=== PATIENT | female | born 2005 | race Caucasian/White ===

== ENCOUNTER 2024-10-20 07:56 | Outpatient (AMB) | payer BC, SELFPAY ==
--- NOTE | 2024-10-20 08:00 | A.OFFPC_ITS ---
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: No Accompanied by: Spouse Allergies No Known Allergies Allergy (Verified 10/20/24 08:10) Medication List - Last Reconciled 10/20/24 by Daniella Montenegro PA-C escitalopram oxalate 5 mg PO DAILY escitalopram oxalate 10 mg PO DAILY Tobacco use date assessed: 10/20/24 Dental Screening Dental Screen Date: 10/20/24 Did you have a dental visit in the last 12 months?: Yes Did you have a dental problem in the last 6 months where you did not have access to dental care?: No Was dental information given to patient?: Patient has dentist HPI 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 Presenting for a new primary care visit and medication management. Currently on escitalopram 10 mg, reduced from 15 mg for over a month and a half, with improved anxiety control and plans to taper further. Eczema has worsened due to environmental and emotional stressors, requiring ongoing topical steroid treatment. Possible Carpal Tunnel Syndrome symptoms include bilateral hand pain with numbness, tingling, and impact on daily activities, suggesting nerve involvement. Patient has been struggling with weight gain over the last several years. Significant post-medication weight gain; history of successful weight loss during the COVID-19 period. She is currently working on exercise and dietary modification. She does regularly see an eye doctor. [facility] Surgical History No pertinent past surgical history Family History Mother No problems noted. Father No problems noted. Social History Housing: Apartment Alcohol intake: never Patient Tobacco Use Status: Never used Tobacco e-Cigarette/Vaping Use: Never Used Second Hand Smoke Exposure: No service: No Current occupational status: employed Current occupational exposures/hazards: No Cognitive needs: No Hearing needs: No Vision needs: Yes Female Reproductive History Menstrual control method: none Total pregnancies: 0 Questionnaire Thrive Questionnaire Date Thrive assessed: 10/18/24 I am a: Patient What is your living situation today?: I have a steady place to live Within the past 12 months, did the food you bought not last and you didn't have the money to get more?: Never true Within the past 12 months, did you worry whether your food would run out before you got money to buy more?: Never true Do you have trouble paying for medicines?: No Do you have trouble getting transportation to medical appointments?: No Do you have trouble paying your heating and electricity bill?: No Do you have trouble taking care of your child, family member or friend?: No Do you have trouble with day-to-day activities such as bathing, preparing meals, shopping, managing finances, etc.?: No Are you currently unemployed and looking for a job?: No Are you interested in more education?: Yes Please select the resources that you would like help with: None THRIVE Score: 0 AUDIT C Alcohol Use Questionnaire (AUDIT-C) 1. How often do you have a drink containing alcohol?: Never Total Score: 0 ANKITA-7 AMB Questionnaire ANKITA-7 Date ANKITA - 7 assessed: 10/20/24 Feeling nervous, anxious, or on edge: 2 = More than half the days Not being able to stop or control worryin = Not at all Worrying too much about different things: 1 = Several days Trouble relaxin = Several days Being so restless that it is hard to sit still: 1 = Several days Becoming easily annoyed or irritable: 1 = Several days Feeling afraid as if something awful might happen: 0 = Not at all Total ANKITA-7 score (0-4 normal; 5-9 mild; 10-14 moderate; 15-21 severe): 6 Source: Developed by Drs. Victor Manuel Hahn, Nayeli Peterson, Dilan Negron and colleagues, with an educational kristine from [employer]. ANKITA-7 Assessment Billing ANKITA-7 Assessment Tool: ANKITA-7 Assessment 21520 Review of Systems Const Denies body aches, Denies chills, Denies fever(s), Denies headache(s) and Denies poor appetite Eyes Reports no additional complaints ENT Denies dysphagia, Denies dizziness, Denies headache(s) and Denies odynophagia Card Denies chest pain, Denies syncope, Denies edema, Denies irregular heart rhythm, Denies lightheadedness and Denies dyspnea Resp Denies cough and Denies dyspnea GI Denies abdominal pain, Denies constipation, Denies dysphagia, Denies diarrhea, Denies nausea, Denies odynophagia and Denies vomiting Reports no additional complaints Musc Reports no additional complaints and Denies abnormal gait Skin/Breast Reports system reviewed and no additional complaints, except as documented Neuro Denies abnormal gait, Denies dizziness, Denies syncope and Denies headache(s) Psych Reports no additional complaints Physical exam (Primary Care) Vital Signs: Last Vital Signs Pulse 96 10/20/24 08:03 BP 126/80 10/20/24 08:03 Pulse Ox 98 10/20/24 08:03 Oxygen Delivery Method Room Air 10/20/24 08:03 BMI result Body Mass Index 45.6 Tobacco/Smoking Status: Tobacco use Status Tobacco use date assessed 10/20/24 10/20/24 08:08 Patient Tobacco Use Status Never used Tobacco 10/20/24 08:08 e-Cigarette/Vaping Use Never Used 10/20/24 08:08 Thrive Assessment: Date of Thrive Assessment Date Thrive assessed 10/18/24 10/20/24 08:08 Const General: cooperative, healthy appearing, comfortable and no acute distress Orientation/consciousness: patient oriented x3 HENMT Head: Yes normocephalic Ears: hearing grossly normal bilaterally General nose exam: Normal external nose present Eyes General: appearance normal, both eyes and all related structures Conjunctivae: conjunctivae normal Neck Neck: Yes full ROM and Yes no lymphadenopathy Resp Effort & Inspection: normal respiratory effort Auscultation: clear to auscultation bilaterally, no crackles, no rales, no rhonchi and no wheezes Cardio Rate: regular rate Rhythm: regular rhythm Skin Other: Multiple patches of dry eczematous rash on bilateral arms General skin exam: no rashes or lesions noted Neuro General: patient oriented x3 Gait exam (Neuro): Normal gait present Extrem General: Yes normal to inspection, Yes full ROM and No edema Psych Affect: normal affect Attitude: cooperative Insight: Good insight present (Psych) Judgement: Good judgement present (Psych) Coding Level of Care Code New Pt Level 4 (44078) Diagnoses Anxiety F41.9 Wears glasses Z97.3 Eczema, unspecified type L30.9 Eczema type: unspecified Numbness and tingling in both hands R20.0; R20.2 Morbid obesity with BMI of 45.0-49.9, adult E66.01; Z68.42 Screening for cervical cancer Z12.4 Additional Codes ANKITA-7 Assessment Billing - ANKITA-7 Assessment Tool: ANKITA-7 Assessment 61921 ([id number]) Assessment & Plan Assessment & Plan (1) Anxiety: Code(s): F41.9 - Anxiety disorder, unspecified Category: Medical Plan: Patient feels her anxiety is well managed on escitalopram she is currently working on tapering down from 15 mg. She would like to discontinue this medication as she feels her anxiety has been improving with the lower doses. She has been on 10 mg for 1.5 months I did advise patient she can further decrease to 5 mg at this time for 2-3 weeks before discontinuing completely. Advised patient to continue to monitor her symptoms while she is tapering and reach out to the office if she has any questions. (2) Wears glasses: Code(s): Z97.3 - Presence of spectacles and contact lenses Category: Medical Plan: Referral was placed for an eye doctor today as patient does not have 1 in this area. (3) Eczema: Code(s): L30.9 - Dermatitis, unspecified Category: Medical Qualifiers: Eczema type: unspecified Qualified Code(s): L30.9 - Dermatitis, unspecified Plan: Patient currently uses topical triamcinolone as prescribed by her last PCP for management of her eczema. Recommended management of triggers advised the use of detergents free of dyes and unscented. Also recommended topical emollients such as Aquaphor or Eucerin (4) Numbness and tingling in both hands: Code(s): R20.0 - Anesthesia of skin; R20.2 - Paresthesia of skin Category: Medical Plan: Patient complaining of numbness and tingling in both hands to do occupational triggers [id number]. Numbness is significant enough to impair daily activities. She does currently wear a supportive wrist brace on the left side both at night and while at work. I recommended the use of more structured night splints specific to carpal tunnel syndrome. Given patient's severity plan to obtain nerve conduction test at this time and can consider referral to Orthopedics. (5) Morbid obesity with BMI of 45.0-49.9, adult: Code(s): E66.01 - Morbid (severe) obesity due to excess calories; Z68.42 - Body mass index [BMI] 45.0-49.9, adult Category: Medical Plan: Healthy diet and regular exercise is encouraged. Plan to obtain blood work. Offered referral to nutrition or weight management today which was declined by the patient. (6) Screening for cervical cancer: Code(s): Z12.4 - Encounter for screening for malignant neoplasm of cervix Category: Medical Plan: Referral was placed to gynecology today Plan At this visit, strategies for the gradual reduction of escitalopram were continued, along with planning for gynecological evaluation due to the lack of prior assessments. To address her eczema exacerbation, continued use of steroid cream and emollients was advised. For possible carpal tunnel syndrome, scheduling of a nerve conduction study will provide further insights. Labs will include a thyroid panel and lipid profile to address concerns with weight gain and manage risks. Ongoing discussions highlighted the importance of healthy lifestyle habits including diet and exercise to aid in weight management and the potential role of medication side effects. This note was constructed using voice recognition software. While every effort has been made to ensure accuracy and grain combine driver, still areas may have been included sometimes these areas may affect the content or meeting of the given symptoms. Total time spent caring for the patient today was 30 minutes. This includes time spent before the visit reviewing the chart, time spent during the visit, and time spent after the visit and documentation. Patient was informed and verbally consented to the use of an ambient scribe for clinic note documentation during this visit. Orders: Orders Comprehensive Met. Panel Today Z00.00 - Encounter for general adult medical examination without abnormal findings Vitamin D 25-OH Total Today Z00.00 - Encounter for general adult medical examination without abnormal findings Complete Blood Count Auto Diff Today Z00.00 - Encounter for general adult medical examination without abnormal findings TSH reflex Free T4 Today Z00.00 - Encounter for general adult medical examination without abnormal findings Free T4 (Free Thyroxine) Today Z00.00 - Encounter for general adult medical examination without abnormal findings Lipid Panel Today Z13.220 - Encounter for screening for lipoid disorders Vitamin B12 and Folate Today Z00.00 - Encounter for general adult medical examination without abnormal findings NE electromyogram (EMG) Today R20.0 - Anesthesia of skin, R20.2 - Paresthesia of skin NE nerve conduction velocity Today R20.0 - Anesthesia of skin, R20.2 - Pare sthesia of skin Referrals PRACTICE COORDINATOR Referral Z12.4 - Encounter for screening for malignant neoplasm of cervix Optometry Referral Z97.3 - Presence of spectacles and contact lenses Dermatology Referral L30.9 - Dermatitis, unspecified
[2024-10-20 08:03] VITALS: BP 126/80; PULSE 96; O2SAT 98; BMI 45.6
== END 2024-10-20 08:38 | disposition home or self-care (01) ==
LOC: HO.HMCH 07:56
DX: R20.2 Paresthesia of skin (principal); E66.01 Morbid (severe) obesity due to excess calories; Z68.42 Body mass index [BMI] 45.0-49.9, adult; F41.9 Anxiety disorder, unspecified; Z97.3 Presence of spectacles and contact lenses; L30.9 Dermatitis, unspecified; R20.0 Anesthesia of skin

== ENCOUNTER → 2024-10-20 07:56 | Outpatient (BNVA) | payer BC, SELFPAY | DX: F41.9 Anxiety disorder, unspecified (principal); L30.9 Dermatitis, unspecified; R20.0 Anesthesia of skin; R20.2 Paresthesia of skin; E66.01 Morbid (severe) obesity due to excess calories; Z68.42 Body mass index [BMI] 45.0-49.9, adult; Z97.3 Presence of spectacles and contact lenses | CPT/HCPCS: 96127 ==

== ENCOUNTER 2024-11-04 09:56 | Outpatient (REF) | payer BC, SELFPAY ==
--- NOTE | 2024-11-04 10:02 | EMG_ITS ---
Bilateral median and ulnar motor and sensory studies were performed. Bilateral radial sensory studies were performed and paraspinal muscles were tested with a needle. 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 MD VIC Sexton/SHELLEY / [phone]
== END 2024-11-04 09:57 | disposition home or self-care (01) ==
LOC: HO.NEURO 09:56
DX: R20.0 Anesthesia of skin (principal); R20.2 Paresthesia of skin
CPT/HCPCS: 95886; 95911

== ENCOUNTER 2025-01-08 06:49 | Outpatient (REF) | payer BC, SELFPAY ==
[2025-01-08 07:06] LABS: MANUAL DIFF FLAG NO
[2025-01-08 07:36] LABS: Hematocrit 37.2 % (37.0-47.0); Hemoglobin 12.5 g/dl (12.0-16.0); Imm Gran Abs Auto 0.03 X10*3/uL (0.00-0.03); Imm Gran Pct Auto 0.4 % (0.0-0.4); Lymphocytes Absolute Auto 2.2 X10*3/uL (1.2-4.9); Mean Corpuscular HGB Conc 33.6 g/dl (31.0-35.0); Mean Corpuscular Hemoglobin 29.6 pg (27.0-33.0); Mean Corpuscular Volume 88.2 fL (80.0-98.0); NRBC Abs Auto 0.000 X10*3/uL (0.0-0.012); NRBC Pct Auto 0.0 /100WBC (0.0-0.2); Platelet Count 325 X10*3/uL (160-400); Red Blood Count 4.22 X10*6/uL (4.20-5.50); White Blood Count 7.6 X10*3/uL (4.8-10.8)
[2025-01-08 08:10] LABS: Alanine Aminotransferase 60 U/L (0-31); Albumin Level 4.3 g/dL (3.5-5.0); Alkaline Phosphatase 78 U/L (39-117); Anion Gap 12 (12-20); Aspartate Amino Transferase 45 U/L (5-31); Blood Urea Nitrogen 13 mg/dL (9-16); Calcium 8.8 mg/dL (8.4-10.2); Carbon Dioxide 25 mmol/L (22-29); Chloride 108 mmol/L (96-108); Cholesterol 148 mg/dL (<200); Estimated Glomerular Filt Rate > 60; HDL Cholesterol 38 mg/dL (>40); Potassium 3.9 mmol/L (3.3-5.1); Sodium 141 mmol/L (135-145); Total Protein 7.0 g/dL (6.5-8.0); Triglycerides 168 mg/dL (<150)
[2025-01-08 08:28] LABS: Free T4 (Free Thyroxine) 1.02 ng/dL (0.71-1.85)
[2025-01-08 08:33] LABS: Folate 13.0 ng/mL (> or = 4.0); Vitamin B12 386 pg/mL (200-900)
== END 2025-01-08 06:50 | disposition home or self-care (01) ==
LOC: HO.LAB 06:49
DX: Z00.00 Encounter for general adult medical examination without abnormal findings (principal); Z13.220 Encounter for screening for lipoid disorders
CPT/HCPCS: 36415; 80053; 80061; 82306; 82607; 82746; 84439; 84443; 85025

== ENCOUNTER 2025-01-12 08:17 | Outpatient (AMB) | payer BC, SELFPAY ==
[2025-01-12 08:23] VITALS: BMI 45.6
--- NOTE | 2025-01-12 08:23 | A.OFFVIS_ITS ---
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 Patient reports numbness and tingling, primarily on the left thumb, that occurs sporadically on some days. 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 Patient feels it is worse at night. She has tried using a carpal tunnel brace during bedtime and a regular brace while at work, when needed. Denies finger locking. Denies previous injuries or surgeries to the hands. 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 Patient reports numbness and tingling, primarily on the left thumb, that occurs sporadically on some days. Patient reports this has been ongoing in the since she was approximately 17 years old. 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 Patient feels it is worse at night. She has tried using a carpal tunnel brace during bedtime and a regular brace while at work, when needed. Denies finger locking. Denies previous injuries or surgeries to the hands. [facility] Surgical History No pertinent past surgical history Family History Mother No problems noted. Father No problems noted. 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 Good APB muscle firing and good finger cross. Vascular: Capillary refill brisk. ROM: Patient can make a fist and extend all their digits. Skin: No lacerations or abrasions noted. General: No ecchymosis. No erythema or evidence of infection. 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 MD VIC Sexton/SHELLEY Assessment & Plan Assessment & Plan (1) Carpal tunnel syndrome on both sides: Code(s): G56.03 - Carpal tunnel syndrome, bilateral upper limbs Category: Medical Plan 1. Carpal tunnel syndrome, left Symptoms intermittent, daily, worse at night I educated the patient about the condition. I discussed both operative and nonoperative treatment options. The patient would like to proceed with surgery. The risks and benefits of operative treatment were discussed with the patient and the patient wishes to proceed with surgery. These risks include, but are not limited to, risk of damage to blood vessels, nerves, tendons, infection, recurrence, incomplete relief of preoperative symptoms, persistent pain, pos sible need for further surgery, and the risks associated with regional blocks and/or anesthesia. Plan is to take the patient to the operating room at some point in the next few weeks for the following procedures: 1. Left carpal tunnel release under local All of the preoperative paperwork including the consent was discussed today. All of the patient's questions were answered in the clinic today. The patient understands that they will be in contact with our surgical supervisor to discuss scheduling their procedure. Patient denies diabetes, blood thinners, asthma, heart issues, lung issues, kid cheri issues, or current smoking. 2. Carpal tunnel syndrome, right Symptoms intermittent, daily, worse at night Patient would like to proceed with operative intervention of the left prior to any operative intervention of the right Patient is informed that if she is recovering well her postoperative visit, we can get her signed up for right-sided surgery Patient understands this and is amenable to this plan Coding Level of Care Code New Pt Level 4 (42631) Diagnoses Carpal tunnel syndrome on both sides G56.03
== END 2025-01-12 08:42 | disposition home or self-care (01) ==
LOC: HO.HOS 08:18
DX: G56.03 Carpal tunnel syndrome, bilateral upper limbs (principal)
CPT/HCPCS: 99204

== ENCOUNTER 2025-01-20 08:51 | Outpatient (AMB) | payer BC, SELFPAY ==
--- NOTE | 2025-01-20 08:53 | MHC.PC.OV ---
Vital Signs 01/20/25 08:54 01/20/25 09:39 Height 5 ft 5 in Weight 283 lb 4 oz BMI 47.1 BP 144/90 H 120/78 Blood Pressure Location Lt brachial Lt brachial Position Sitting Sitting Pulse 116 H 98 Pulse Source Pulse Oximeter Auscultation Temp Source Temporal Artery Scan Pulse Oximetry (%) 99 Oxygen Delivery Method Room Air Intake Visit Reasons: Annual exam Telephone Surveyor Required: No Accompanied by: Self / Same As Patient Allergies No Known Allergies Allergy (Verified 01/20/25 09:04) Medication List - Last Reconciled 01/20/25 by Daniella Montenegro PA-C No Known Home Meds Tobacco use date assessed: 01/20/25 Dental Screening Dental Screen Date: 01/20/25 Did you have a dental visit in the last 12 months?: Yes Did you have a dental problem in the last 6 months where you did not have access to dental care?: No Was dental information given to patient?: Patient has dentist HPI Annual exam HPI Details 19-year-old female with past medical history of anxiety, eczema last seen 10/2024 coming in for annual exam.? In review of the notes, patient was seen by [facility] orthopedics 12/2024 for bilateral carpal tunnel scheduled for left carpal tunnel release with right-sided to follow. Presenting for an annual wellness visit. The patient reports severe eczema affecting her arms and back, with current treatment using triamcinolone 0.5% ointment and Aquaphor. She has not seen a dumper operator yet but plans to do so. The patient has been taking Zyrtec daily for over a year and was advised to switch to Bertha or Claritin to prevent tolerance. Recent blood work showed elevated liver enzymes, which could be due to fatty liver disease or other factors. A retest and hepatitis panel are planned. The patient's triglycerides were slightly elevated at 168 mg/dL, and lifestyle modifications were recommended. The patient has discontinued escitalopram and reports feeling more emotions, with occasional depression but no anxiety. She is considering Hindu counseling. pap smears: referral placed at last visit vaccines: UTD [facility] Surgical History No pertinent past surgical history Family History Mother No problems noted. Father No problems noted. 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 1. Little interest or pleasure in doing things: not at all 2. Feeling down, depressed, or hopeless: not at all 3. Trouble falling or staying asleep, or sleeping too much: several days 4. Feeling tired or having little energy: not at all 5. Poor appetite or overeating: not at all 6. Feeling bad about yourself - or that you are a failure or have let yourself or your family down: not at all 7. Trouble concentrating on things, such as reading the newspaper or watching television: not at all 8. Moving or speaking so slowly that other people could have noticed. Or the opposite - being so fidgety or restless that you have been moving around a lot more than usual: not at all 9. Thoughts that you would be better off or of hurting yourself in some way: not at all Total score: 1 Depression Screening Interpretation: Negative Depression Screening Done: Yes 08279 - PHQ-9 Billing: Yes Source: Developed by Drs. Victor Manuel Hahn, Nayeli Peterson, Dilan Negron and colleagues, with an educational kristine from [employer]. Thrive Questionnaire Date Thrive assessed: 01/20/25 I am a: Patient What is your living situation today?: I have a steady place to live Within the past 12 months, did the food you bought not last and you didn't have the money to get more?: Never true Within the past 12 months, did you worry whether your food would run out before you got money to buy more?: Never true Do you have trouble paying for medicines?: No Do you have trouble getting transportation to medical appointments?: No Do you have trouble paying your heating and electricity bill?: No Do you have trouble taking care of your child, family member or friend?: No Do you have trouble with day-to-day activities such as bathing, preparing meals, shopping, managing finances, etc.?: No Are you currently unemployed and looking for a job?: No Are you interested in more education?: Yes Please select the resources that you would like help with: None Currently or been in a relationship where the following occur: No concerns reported THRIVE Score: 0 AUDIT C Alcohol Use Questionnaire (AUDIT-C) 2. How many drinks containing alcohol do you have on a typical day when you are drinking?: 1 or 2 Total Score: 0 ANKITA-7 AMB Questionnaire ANKITA-7 Date ANKITA - 7 assessed: 01/20/25 Source: Developed by Drs. Victor Manuel Hahn, Nayeli Peterson, Dilan Negron and colleagues, with an educational kristine from [employer]. Review of Systems Const Denies body aches, Denies fatigue, Denies fever(s), Denies frequent falls, Denies headache(s) and Denies weakness Eyes Reports no additional complaints and Denies change in vision ENT Denies dysphagia, Denies dizziness, Denies facial pain, Denies headache(s), Denies nasal congestion and Denies odynophagia Card Denies chest pain, Denies syncope, Denies irregular heart rhythm, Denies leg edema, Denies lightheadedness and Denies dyspnea Resp Denies cough and Denies dyspnea GI Denies abdominal pain, Denies constipation, Denies dysphagia, Denies dyspepsia, Denies diarrhea, Denies nausea, Denies odynophagia and Denies vomiting Denies urinary frequency, Denies dysuria, Denies urinary hesitancy and Denies urinary urgency Musc Denies back pain and Denies myalgias Skin/Breast Details: eczema Reports system reviewed and no additional complaints, except as documented Neuro Denies dizziness, Denies syncope, Denies frequent falls, Denies headache(s) and Denies weakness Psych Reports no additional complaints Endo Denies fatigue Physical exam (Primary Care) Vital Signs: Last Vital Signs Pulse 98 01/20/25 09:39 BP 120/78 01/20/25 09:39 Pulse Ox 99 01/20/25 08:54 Oxygen Delivery Method Room Air 01/20/25 08:54 BMI result Body Mass Index 47.1 Tobacco/Smoking Status: Tobacco use Status Tobacco use date assessed 01/20/25 01/20/25 09:01 Patient Tobacco Use Status Never used Tobacco 01/20/25 09:01 e-Cigarette/Vaping Use Never Used 01/20/25 09:01 PHQ-9: PHQ-9 Score PHQ-9: Total score 1 01/20/25 09:05 Depression Screening Interpretation: Negative Thrive Assessment: Date of Thrive Assessment Date Thrive assessed 01/20/25 01/20/25 09:01 Currently or been in a relationship where the following occur: No concerns reported Const General: cooperative, healthy appearing, comfortable and no acute distress Orientation/consciousness: patient oriented x3 HENMT Head: Yes normocephalic Ears: hearing grossly normal bilaterally, external ears normal, TM's normal bilaterally and EAC's normal General nose exam: Normal external nose present Face and sinus: Yes normal facial exam and Yes sinuses nontender Mouth: Normal oral and palatal mucosa present and tongue normal Throat: Yes posterior oropharynx normal Eyes General: appearance normal, both eyes and all related structures Conjunctivae: conjunctivae normal Pupils: Equal, round and reactive pupils present EOM: EOMs intact bilaterally and No Nystagmus present Neck Neck: Yes normal visual inspection, Yes full ROM and Yes no lymphadenopathy Chest Chest palpation & inspection: normal inspection of the chest Resp Effort & Inspection: normal respiratory effort Auscultation: clear to auscultation bilaterally, no crackles, no rales, no rhonchi, no wheezes and breath sounds present Cardio Rate: regular rate Rhythm: regular rhythm Peripheral pulses: radial pulses present and dorsalis pedis present GI Inspection: Yes normal to inspection and No Abdominal wall edema Palpation (GI): Soft to palpation, not firm and nontender Auscultation: normal bowel sounds Rectal Exam - Female: deferred General: Yes no CVA tenderness Back/Spine/Pelvis Back: no CVA tenderness Skin Other: Several patches of eczematous rash on back and upper arms with excoriations and areas of open skin. No evidence of infection, no drainage, no pain to palpation Neuro General: patient oriented x3 Cranial nerves: Yes Equal, round and reactive pupils present, Yes Midline tongue present, Yes Ability to bilaterally elevate shoulders present and No Nystagmus present Gait exam (Neuro): Normal gait present Extrem General: Yes normal to inspection, Yes full ROM, No no pedal edema and No edema Psych Speech and movement: Normal speech and movement present Affect: normal affect Insight: Good insight present (Psych) Judgement: Good judgement present (Psych) Coding Level of Care Code Est Pt Prev Care 18-39y([id number]) Diagnoses Annual physical exam Z00.00 Anxiety F41.9 Wears glasses Z97.3 Eczema, unspecified type L30.9 Eczema type: unspecified Numbness and tingling in both hands R20.0; R20.2 Morbid obesity with BMI of 45.0-49.9, adult E66.01; Z68.42 Screening for cervical cancer Z12.4 Elevated LFTs R79.89 Vitamin D deficiency E55.9 Multiple allergies Z88.9 Hypertriglyceridemia E78.1 Additional Codes PHQ-9 - 17360 - PHQ-9 Billing: Yes ([id number]) Assessment & Plan Assessment & Plan (1) Annual physical exam: Code(s): Z00.00 - Encounter for general adult medical examination without abnormal findings Category: Medical Plan: Patient is up-to-date on all recommended routine screenings and vaccinations for her age. Blood work is up-to-date and has been reviewed with the patient today. (2) Anxiety: Code(s): F41.9 - Anxiety disorder, unspecified Category: Medical Plan: No longer taking Lexapro and feels her symptoms are well managed at this time. Declining medication. She is looking into seeing a counselor through her hinduism. (3) Wears glasses: Code(s): Z97.3 - Presence of spectacles and contact lenses Category: Medical Plan: Referral was placed for an eye doctor at last visit and was seen by [facility]. (4) Eczema: Code(s): L30.9 - Dermatitis, unspecified Category: Medical Qualifiers: Eczema type: unspecified Qualified Code(s): L30.9 - Dermatitis, unspecified Plan: Recommended management of triggers advised the use of detergents free of dyes and unscented. Also recommended topical emollients such as Aquaphor or Eucerin. Referral was placed to dermatology today. (5) Numbness and tingling in both hands: Code(s): R20.0 - Anesthesia of skin; R20.2 - Paresthesia of skin Category: Medical Plan: Seen by [facility] orthopedics and scheduled for left CTR with plans for right CTR in the future. (6) Morbid obesity with BMI of 45.0-49.9, adult: Code(s): E66.01 - Morbid (severe) obesity due to excess calories; Z68.42 - Body mass index [BMI] 45.0-49.9, adult Category: Medical Plan: Healthy diet and regular exercise is encouraged. Offered referral to nutrition or weight management today which was declined by the patient. Noted 9 lb weight gain since last visit. Discussed possibility of medication management at this time patient will reach out to the office if she would like to try anything (7) Screening for cervical cancer: Code(s): Z12.4 - Encounter for screening for malignant neoplasm of cervix Category: Medical Plan: Referral was placed to gynecology at last visit. (8) Elevated LFTs: Code(s): R79.89 - Other specified abnormal findings of blood chemistry Category: Medical Plan: LFTs elevated on last blood work plan for repeat blood work including hepatitis panel and consider abdominal ultrasound if remains elevated. (9) Vitamin D deficiency: Code(s): E55.9 - Vitamin D deficiency, unspecified Category: Medical Plan: Recommend vitamin-D supplementation [id number]. (10) Multiple allergies: Code(s): Z88.9 - Allergy status to unspecified drugs, medicaments and biological substances Category: Medical Plan: Referral was placed to capsule filling machine operator today. (11) Hypertriglyceridemia: Code(s): E78.1 - Pure hyperglyceridemia Category: Medical Plan: Avoid foods that are high in cholesterol such as red meat, fried foods, eggs and baked goods. Triglyceride goal of less than 150 and LDL goal of less than 130. Healthy diet and regular exercise is encouraged. Plan The patient will be referred to dermatology for further evaluation and management of her eczema, as current topical treatments are insufficient. A referral to an capsule filling machine operator is also planned to address her allergic rhinitis and potential allergy-related skin issues. For her elevated liver enzymes, a retest and hepatitis panel will be conducted to rule out any underlying conditions. If the enzymes remain elevated, an abdominal ultrasound may be considered to assess for fatty liver disease. The patient is advised to switch from Zyrtec to Bertha or Claritin to prevent tolerance and improve her allergic symptoms. She is also encouraged to maintain a consistent schedule for her antihistamine use. For her vitamin D deficiency, the patient is advised to take an [id number] vitamin D supplement to improve her levels and potentially enhance her energy levels. Lifestyle modifications, including diet and exercise, are recommended to address her hypertriglyceridemia and support weight management. Intermittent fasting is suggested as a potential strategy to aid in weight control. The patient is encouraged to continue monitoring her mental health and consider Hindu counseling for additional support. Follow-up is planned in five months to reassess her conditions and progress. This note was constructed using voice recognition software. While every effort has been made to ensure accuracy and regulatory affairs spec, still areas may have been included sometimes these areas may affect the content or meeting of the given symptoms. Total time spent caring for the patient today was 30 minutes. This includes time spent before the visit reviewing the chart, time spent during the visit, and time spent after the visit and documentation. Patient was informed and verbally consented to the use of an ambient scribe for clinic note documentation during this visit. Orders: Orders Lipid Panel Today E78.00 - Pure hypercholesterolemia, unspecified Hepatitis B,C Profile Today R79.89 - Other specified abnormal findings of blood chemistry Referrals Dermatology Referral L30.9 - Dermatitis, unspecified Allergy & Immunology Referral L30.9 - Dermatitis, unspecified, Z88.9 - Allergy status to unspecified drugs, medicaments and biological substances
[2025-01-20 08:54] VITALS: BP 144/90; PULSE 116; O2SAT 99; BMI 47.1
[2025-01-20 09:39] VITALS: BP 120/78; PULSE 98
== END 2025-01-20 09:44 | disposition home or self-care (01) ==
LOC: HO.HMCH 08:52
DX: Z00.00 Encounter for general adult medical examination without abnormal findings (principal); E55.9 Vitamin D deficiency, unspecified; E66.01 Morbid (severe) obesity due to excess calories; Z68.42 Body mass index [BMI] 45.0-49.9, adult; L30.9 Dermatitis, unspecified; F41.9 Anxiety disorder, unspecified; R20.0 Anesthesia of skin; R20.2 Paresthesia of skin; Z12.4 Encounter for screening for malignant neoplasm of cervix; R79.89 Other specified abnormal findings of blood chemistry; Z88.9 Allergy status to unspecified drugs, medicaments and biological substances; E78.1 Pure hyperglyceridemia; Z97.3 Presence of spectacles and contact lenses

== ENCOUNTER → 2025-01-20 08:51 | Outpatient (BNVA) | payer BC, SELFPAY | DX: Z00.00 Encounter for general adult medical examination without abnormal findings (principal); F41.9 Anxiety disorder, unspecified; L30.9 Dermatitis, unspecified; R20.0 Anesthesia of skin; R20.2 Paresthesia of skin; E66.01 Morbid (severe) obesity due to excess calories; R79.89 Other specified abnormal findings of blood chemistry; E55.9 Vitamin D deficiency, unspecified; E78.1 Pure hyperglyceridemia; E78.00 Pure hypercholesterolemia, unspecified; Z88.9 Allergy status to unspecified drugs, medicaments and biological substances; Z97.3 Presence of spectacles and contact lenses; Z68.42 Body mass index [BMI] 45.0-49.9, adult | CPT/HCPCS: 96127 ==

== ENCOUNTER 2025-02-12 13:52 | Day surgery (SDC) | payer BC, SELFPAY ==
[2025-02-12 13:47] VITALS: BMI 47.1
[2025-02-12 14:05] VITALS: BP 154/73; PULSE 75; RESP 20; TEMP 36.4; O2SAT 98
--- NOTE | 2025-02-12 14:51 | P.OP_ITS ---
Operative Note Operative Note Date of Service: 02/12/25 Narrative: Preop diagnosis: 1. Left Carpal tunnel syndrome Postop diagnosis: same Procedure: 1. Left Carpal tunnel release Surgeon: Keila Alston MD Shipping Receiving Clerk: Gallo HILL Anesthesia: local block using 1% lidocaine with epinephrine Findings: Thickened transverse carpal ligament. EBL: Less than 5 mL Specimens: None Complications: None Disposition: Brought to recovery room in stable condition Plan: Follow-up for 10-14 days for wound check and suture removal Indications: The patient is 19 years old, with left carpal tunnel syndrome that has been unresponsive to nonoperative management. The risks and benefits of operative treatment including but not limited to risk of damage to blood vessels, nerves, tendons, infection, persistent pain, persistent symptoms, or possible need for additional surgery were discussed with the patient and the patient wishes to proceed with surgery. Procedure: Once consent was obtained a local block was performed using a combination of 1% lidocaine with epinephrine. The patient was then brought back to the operating suite and placed on the operative table in supine position. The left upper extremity was prepped and draped in a standard surgical fashion. Once assured that we had a good block, a 2.0 cm longitudinal incision was made centered over the carpal tunnel. The incision was made through the skin to the subcutaneous tissues using a #15 blade. Dissection was made down to the level of the transverse carpal ligament with care being taken to protect the palmar cutaneous nerve. Once the transverse carpal ligament was clearly visualized, a longitudinal incision was made in the transverse carpal ligament 1st using a #15 blade, then using tenotomy scissors under direct visualization. Care was taken to look for and protect the motor branch of the median nerve when seen in this area. Once satisfied with our carpal tunnel release the wound was copiously irrigated with normal saline and hemostasis was obtained with a brief period of local pressure. The skin edges were reapproximated with some 5.0 nylon suture material and a sterile dressing was applied. The patient appears to have tolerated the procedure well and with no complications. All digits were well vascularized at the conclusion of the case.
--- NOTE | 2025-02-12 14:51 | MHC.SHP ---
Pre-Procedural Eval Section A - 24 Hr Update-Section A only Date of Service: 02/12/25 The patient is an INPATIENT: No Changes since office visit: No Cold of Flu in the past 2 weeks, No New Medical Problems, No Changes in Medication and No Patient answered all questions The patient has been examined within 24 hours of the surgical procedure. The History & Physical has been completed within 30 days and I have reviewed it.: Yes Section B - Complete if H&P > 30 days Chief Complaint: Carpal tunnel syndrome, left upper limb Allergies: Allergies Allergy/AdvReac Type Severity Reaction Status Date / Time No Known Allergies Allergy Verified 01/20/25 09:04 Plan Diagnosis/Plan: Unchanged (Left carpal tunnel release) I have reviewed the history and physical and performed a pertinent physical examination on my patient. No changes have occurred unless specified. Time Spent With Patient Time: Total time managing care of this patient today ____ minutes.
[2025-02-12 16:11] VITALS: BP 124/81; PULSE 98; RESP 17; O2SAT 100
== END 2025-02-12 16:11 | disposition home or self-care (01) ==
PROVIDERS: Visit Provider Orthopaedic Surgery
PROC: (CPT 64721; principal; 2025-02-12 15:30)
DX: G56.02 Carpal tunnel syndrome, left upper limb (principal); R20.0 Anesthesia of skin; R20.2 Paresthesia of skin
CPT/HCPCS: 64721; J0165; J2003

== ENCOUNTER → 2025-02-12 13:52 | Outpatient (BNV) | payer BC, SELFPAY | PROVIDERS: Visit Provider Orthopaedic Surgery | DX: G56.02 Carpal tunnel syndrome, left upper limb (principal) | CPT/HCPCS: 64721 ==

== ENCOUNTER 2025-02-24 12:46 | Outpatient (AMB) | payer BC, SELFPAY ==
[2025-02-24 12:54] VITALS: BMI 47.1
--- NOTE | 2025-02-24 12:54 | MHC.OFFVIS ---
Vital Signs 02/24/25 12:54 Height 5 ft 5 in Weight 283 lb BMI 47.1 Intake Visit Reasons: PO-Lt CTR 02/09/25 Intake Note: Em is a 19 year old right hand dominant female who presents today for her first post-operative visit status post Left Carpal Tunnel Release performed 02/09/[address] Alston. Patient reports she went to [facility] over the weekend due to concerns for infection. She was started on antibiotics and is on day 3 right now. She denies numbness, tingling, finger locking. No pain medication at this point. Sutures removed in office and steri strips applied. Allergies No Known Allergies Allergy (Verified 02/24/25 12:56) HPI HPI PO-Lt CTR 02/09/25: Details: Em is a 19 year old right hand dominant female who presents today for her first post-operative visit status post Left Carpal Tunnel Release performed 02/09/[address] Alston. Patient reports she went to [facility] over the weekend due to concerns for infection due to increasing redness and swelling in the area of the incision. Patient reports that redness and swelling have improved since being on antibiotics. She was started on antibiotics and is on day 3 right now. She denies numbness, tingling, finger locking. No pain medication at this point. Sutures removed in office and steri strips applied. [facility] Medical History (Updated 02/12/25 @ 14:08 by Sangeeta Britton RN) Flu Surgical History No pertinent past surgical history Family History Mother No problems noted. Father No problems noted. 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 Neuro: Normal sensation of the tips of all digits of the left hand at this time Vascular: Cap refill brisk Pain: Mild tenderness to palpation about the incision on volar aspect of the left wrist over the carpal tunnel No discomfort with range of motion of the left hand ROM: Patient is able to make a closed fist and extend all digits of the left hand fully Skin: Well-approximated incision site noted on the volar left wrist No lacerations or abrasions. General: There is some [id number] erythema that has surrounding the incision site No evidence of deeper abscess formation, drainage, or evidence of worsening infection Psych: Appears grossly normal Affect normal Attitude cooperative Assessment & Plan Assessment & Plan (1) Carpal tunnel syndrome on both sides: Code(s): G56.03 - Carpal tunnel syndrome, bilateral upper limbs Category: Medical Plan 1. Status post left carpal tunnel release DOS 02/09/2025 Patient appears to be recovering fairly well postoperatively Patient is educated about recovery course This time, patient is informed that it is likely she has developed some superficial cellulitis around incision site, however there is no evidence of deeper infection Sutures removed without issue, Steri-Strips applied Patient should continue with the current course of antibiotics prescribed to her by [facility], as she has experienced significant recovery since beginning these Patient is educated on the signs and symptoms of worsening infection, and should call us or present to the emergency department for any of these Patient understands this and is amenable to this plan Follow-up in 1 week for wound check, sooner with any acute concerns Coding Level of Care Code Global (95389) Diagnoses Carpal tunnel syndrome on both sides G56.03
== END 2025-02-24 13:35 | disposition home or self-care (01) ==
LOC: HO.HOS 12:46
DX: G56.03 Carpal tunnel syndrome, bilateral upper limbs (principal)
CPT/HCPCS: 99024

== ENCOUNTER 2025-03-04 13:04 | Outpatient (AMB) | payer BC, SELFPAY ==
--- NOTE | 2025-03-04 13:16 | MHC.OFFVIS ---
Vital Signs 03/04/25 13:20 Height 5 ft 5 in Weight 283 lb BMI 47.1 Handedness Right Intake Visit Reasons: PO: wound check / left CTR DOS 02/12/25 Intake Note: Em is a 19 year old right hand dominant woman who presents today for a post operative visit and wound check status post undergoing a left carpal tunnel release, DOS: 02/12/[address] Keila Alston. At last visit she was advised to continue with the current course of antibiotics prescribed to her by [facility] and says she has completed them on 03/03/25 in the morning. She says she was putting a bandage over the incision site but then it scabbed so she discontinued it so the scab could dry and fall off. She say feels improvement in the hand beside some tenderness that has resides but says she feels better after getting this procedure done.She is hoping she can discuss her right carpal tunnel release. Her shooting pain has resolved. Allergies No Known Allergies Allergy (Verified 02/24/25 12:56) HPI HPI PO: wound check / left CTR DOS 02/12/25: Details: Em is a 19 year old right hand dominant woman who presents today for a post operative visit and wound check status post undergoing a left carpal tunnel release, DOS: 02/12/[address] Keila Alston. At last visit she was advised to continue with the current course of antibiotics prescribed to her by [facility] and says she has completed them on 03/03/25 in the morning. She says she was putting a bandage over the incision site but then it scabbed so she discontinued it so the scab could dry and fall off. She say feels improvement in the hand beside some tenderness that has resides but says she feels better after getting this procedure done.She is hoping she can discuss her right carpal tunnel release. Her shooting pain has resolved. [facility] Medical History (Updated 02/12/25 @ 14:08 by Sangeeta Britton RN) Flu Surgical History (Updated 03/04/25 @ 13:25 by KARIE Ramires) History of carpal tunnel surgery of left wrist (~02/12/25) No pertinent past surgical history Family History Mother No problems noted. Father No problems noted. 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 Neuro: Normal sensation of the tips of all digits of the left hand at this time Vascular: Cap refill brisk Pain: No tenderness to palpation about the incision on volar aspect of the left wrist over the carpal tunnel No discomfort with range of motion of the left hand ROM: Patient is able to make a closed fist and extend all digits of the left hand fully Skin: Well-approximated incision site noted on the volar left wrist No lacerations or abrasions. General: Erythema around incision site has completely resolved No evidence of deeper abscess formation, drainage, or evidence of worsening infection Psych: Appears grossly normal Affect normal Attitude cooperative Assessment & Plan Assessment & Plan (1) Carpal tunnel syndrome on both sides: Code(s): G56.03 - Carpal tunnel syndrome, bilateral upper limbs Category: Medical Plan 1. Status post left carpal tunnel release DOS 02/09/2025 Patient appears to be recovering fairly well postoperatively Patient is educated about recovery course Cellulitis appears completely resolved Sutures removed without issue, Steri-Strips applied No further antibiotics indicated Patient is educated on the signs and symptoms of worsening infection, and should call us or present to the emergency department for any of these Patient understands this and is amenable to this plan Follow-up in 1-2 week for wound check, sooner with any acute concerns Coding Level of Care Code Global (53540) Diagnoses Carpal tunnel syndrome on both sides G56.03
[2025-03-04 13:20] VITALS: BMI 47.1
== END 2025-03-04 13:43 | disposition home or self-care (01) ==
DX: G56.03 Carpal tunnel syndrome, bilateral upper limbs (principal)
CPT/HCPCS: 99024

== ENCOUNTER 2025-03-18 13:03 | Outpatient (AMB) | payer BC, SELFPAY ==
--- NOTE | 2025-03-18 13:12 | A.OFFVIS_ITS ---
Intake Visit Reasons: OV: Discuss RT CTS Intake Note: Em is a 19 year old right hand dominant woman who presents today for follow up of her Right Carpal Tunnel Syndrome and discussion of surgical intervention. On 01/12/25, she described symptoms as intermittent, daily, worse at night. She expresses since she had restrictions on her left hand she's been using the right hand more often causing her symptoms to increase and be more frequent. S/P Left Carpal Tunnel Release DOS 02/12/[address] Alston EMG/NCS on 11/04/24 IMPRESSION: Mild to moderate bilateral median neuropathy across carpal tunnel. Allergies No Known Allergies Allergy (Verified 03/18/25 13:16) HPI HPI OV: Discuss RT CTS: Details: Em is a 19 year old right hand dominant woman who presents today for follow up of her Right Carpal Tunnel Syndrome and discussion of surgical intervention. On 01/12/25, she described symptoms as intermittent, daily, worse at night. She expresses since she had restrictions on her left hand she's been using the right hand more often causing her symptoms to increase and be more frequent. S/P Left Carpal Tunnel Release DOS 02/12/[address] Alston EMG/NCS on 11/04/24 IMPRESSION: Mild to moderate bilateral median neuropathy across carpal tunnel. [facility] Medical History (Updated 02/12/25 @ 14:08 by Sangeeta Britton RN) Flu Surgical History (Updated 03/04/25 @ 13:25 by KARIE Ramires) History of carpal tunnel surgery of left wrist (~02/12/25) No pertinent past surgical history Family History Mother No problems noted. Father No problems noted. 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 Good APB muscle firing and good finger cross. Vascular: Capillary refill brisk. ROM: Patient can make a fist and extend all their digits. Skin: No lacerations or abrasions noted. General: No ecchymosis. No erythema or evidence of infection. Assessment & Plan Assessment & Plan (1) Carpal tunnel syndrome on both sides: Code(s): G56.03 - Carpal tunnel syndrome, bilateral upper limbs Category: Medical Plan 1. Right carpal tunnel syndrome Symptoms intermittent, daily, worse at night I educated the patient about the condition. I discussed both operative and nonoperative treatment options. The patient would like to proceed with surgery. The risks and benefits of operative treatment were discussed with the patient and the patient wishes to proceed with surgery. These risks include, but are not limited to, risk of damage to blood vessels, nerves, tendons, infection, recurrence, incomplete relief of preoperative symptoms, persistent pain, possible need for further surgery, and the risks associated with regional blocks and/or anesthesia. Plan is to take the patient to the operating room at some point in the next few weeks for the following procedures: 1. Right carpal tunnel release under local All of the preoperative paperwork including the consent was discussed today. All of the patient's questions were answered in the clinic today. The patient understands that they will be in contact with our surgical instrument technician to discuss scheduling their procedure. Patient denies diabetes, blood thinners, asthma, heart issues, lung issues, kidney issues, or current smoking. Coding Level of Care Code Est Pt Level 4 (43472) Diagnoses Carpal tunnel syndrome on both sides G56.03
== END 2025-03-18 13:29 | disposition home or self-care (01) ==
DX: G56.03 Carpal tunnel syndrome, bilateral upper limbs (principal)
CPT/HCPCS: 99214

== ENCOUNTER 2025-05-04 08:19 | Day surgery (SDC) | payer BC, SELFPAY ==
[2025-05-04 09:20] VITALS: BP 125/80; PULSE 114; RESP 20; TEMP 36.6; O2SAT 99; BMI 47.1
--- NOTE | 2025-05-04 09:46 | MHC.SHP ---
Pre-Procedural Eval Section A - 24 Hr Update-Section A only Date of Service: 05/04/25 The patient is an INPATIENT: No Changes since office visit: No Cold of Flu in the past 2 weeks, No New Medical Problems, No Changes in Medication and No Patient answered all questions The patient has been examined within 24 hours of the surgical procedure. The History & Physical has been completed within 30 days and I have reviewed it.: Yes Section B - Complete if H&P > 30 days Chief Complaint: Carpal tunnel syndrome, right upper limb Allergies: Allergies Allergy/AdvReac Type Severity Reaction Status Date / Time No Known Allergies Allergy Verified 03/18/25 13:16 Plan Diagnosis/Plan: Unchanged I have reviewed the history and physical and performed a pertinent physical examination on my patient. No changes have occurred unless specified. Time Spent With Patient Time: Total time managing care of this patient today ____ minutes.
--- NOTE | 2025-05-04 09:46 | W.PM.OPN ---
Operative Note Operative Note Date of Service: 05/04/25 Narrative: Preop diagnosis: 1. Right Carpal tunnel syndrome Postop diagnosis: same Procedure: 1. Right Carpal tunnel release Surgeon: Keila Alston MD Shaker Repairer: None Anesthesia: local block using 1% lidocaine with epinephrine Findings: Thickened transverse carpal ligament. EBL: Less than 5 mL Specimens: None Complications: None Disposition: Brought to recovery room in stable condition Plan: Follow-up for 10-14 days for wound check and suture removal Indications: The patient is 20 years old, with right carpal tunnel syndrome that has been unresponsive to nonoperative management. The risks and benefits of operative treatment including but not limited to risk of damage to blood vessels, nerves, tendons, infection, persistent pain, persistent symptoms, or possible need for additional surgery were discussed with the patient and the patient wishes to proceed with surgery. Procedure: Once consent was obtained a local block was performed using a combination of 1% lidocaine with epinephrine. The patient was then brought back to the operating suite and placed on the operative table in supine position. The right upper extremity was prepped and draped in a standard surgical fashion. Once assured that we had a good block, a 2.0 cm longitudinal incision was made centered over the carpal tunnel. The incision was made through the skin to the subcutaneous tissues using a #15 blade. Dissection was made down to the level of the transverse carpal ligament with care being taken to protect the palmar cutaneous nerve. Once the transverse carpal ligament was clearly visualized, a longitudinal incision was made in the transverse carpal ligament 1st using a #15 blade, then using tenotomy scissors under direct visualization. Care was taken to look for and protect the motor branch of the median nerve when seen in this area. Once satisfied with our carpal tunnel release the wound was copiously irrigated with normal saline and hemostasis was obtained with a brief period of local pressure. The skin edges were reapproximated with some 5.0 nylon suture material and a sterile dressing was applied. The patient appears to have tolerated the procedure well and with no complications. All digits were well vascularized at the conclusion of the case.
[2025-05-04 11:02] VITALS: BP 140/83; PULSE 98; RESP 16; TEMP 36.1; O2SAT 100
== END 2025-05-04 11:04 | disposition home or self-care (01) ==
PROVIDERS: Visit Provider Orthopaedic Surgery
PROC: (CPT 64721; principal; 2025-05-04 10:10)
DX: G56.01 Carpal tunnel syndrome, right upper limb (principal); Z98.890 Other specified postprocedural states
CPT/HCPCS: 64721; J0165; J2003

== ENCOUNTER → 2025-05-04 08:19 | Outpatient (BNV) | payer BC, SELFPAY | PROVIDERS: Visit Provider Orthopaedic Surgery | DX: G56.01 Carpal tunnel syndrome, right upper limb (principal) | CPT/HCPCS: 64721 ==

== ENCOUNTER 2025-05-11 23:18 | Emergency (ER) | payer BC, SELFPAY ==
[2025-05-11 23:25] VITALS: BP 145/95; PULSE 127; RESP 20; TEMP 36.8; O2SAT 97; BMI 47.1
--- NOTE | 2025-05-11 23:41 | PC.NURSE ---
Pt ambulatory to ED 15 from triage, assumed care of pt at this time. A&Ox3 skin pwd respirations even unlabored. Had right carpal [place] [facility] [place], redness, swelling, and drainage to incision site beginning 2 days ago and worsening today. Denies fever. Area red and warm to touch. Awaiting primary provider eval, aware of plan of care.
--- NOTE | 2025-05-11 23:50 | PC.NURSE ---
Sutures removed by provider.
--- NOTE | 2025-05-12 00:25 | ED.SKABFB ---
HPI - Skin/Abscess/Foreign Bdy General Chief complaint: Skin/Abscess/Foreign Body Stated complaint: General Medical Time Seen by Provider: 05/11/25 23:37 History of Present Illness ED Provider: Maria M Alvarez HPI narrative: 20-year-old female presents to the ED reporting pain and redness to the suture site of the previous carpal tunnel surgery that was performed 7 days ago. She reports that she was told to leave the sutures in for 14 days, but noticed yesterday that the suture site was red and swollen. She also reportedly saw a small amount of pus came out of the site. Denies any fever, chills, body aches. Reports that she is currently on her menstrual cycle and feels some fatigue. She had an infection to her left wrist at her previous carpal tunnel site prior, and reports this feels the same. At that time she was on Keflex. Range of motion of the wrist is intact, no painful range of motion. No numbness, tingling. Reports the stitches feel tight. No chest pain or shortness of breath, abdominal pain. Related Data Previous Rx's ?Medication ?Instructions ?Recorded triamcinolone acetonide 0.1 % 1 appl topical DAILY #30 grams 01/22/25 topical ointment hydrocodone 5 mg-acetaminophen 325 1 tab PO Q4-6H PRN pain #5 tabs 05/04/25 mg tablet cephalexin 500 mg capsule 1,000 mg (2 x 500 mg) PO BID 7 05/12/25 days #28 caps Allergies Allergy/AdvReac Type Severity Reaction Status Date / Time No Known Allergies Allergy Verified 05/11/25 23:27 Review of Systems Review of Systems: ROS is otherwise negative unless mentioned in HPI. [facility] Past Medical History Medical History (Updated 05/12/25 @ 00:26 by PAPO Borges) Flu Surgical History (Updated 03/04/25 @ 13:25 by KARIE Ramires) History of carpal tunnel surgery of left wrist (~02/12/25) No pertinent past surgical history Family History Family History Mother No problems noted. Father No problems noted. 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 Constitutional: Well-appearing, NAD. Alert. Oriented X3. Neck: Normal inspection. Neck supple. CVS: Normal rate and rhythm. Pulses normal. Respiratory: No respiratory distress. Abdomen: Nondistended. Skin: Skin warm and dry. Normal skin color. Redness, warmth to the right carpal tunnel site, stitches appear taught. Extremities: No lower extremity edema. Neuro: Oriented X 3. No motor deficit. Vital Signs: Vital Signs: Last Vital Signs Temp 98.2 F 05/11/25 23:25 Pulse 127 H 05/11/25 23:25 Resp 20 05/11/25 23:25 BP 145/95 H 05/11/25 23:25 Pulse Ox 97 05/11/25 23:25 O2 Del Method Room Air 05/11/25 23:25 BMI result Body Mass Index 47.1 Medications Administered Discontinued Medications Generic Name Dose Route Start Last Admin Trade Name Freq PRN Reason Stop Dose Admin Cephalexin HCl 1,000 mg 05/11/25 23:54 05/12/25 00:01 Cephalexin 500 Mg Capsule PO 05/11/25 23:55 1,000 mg ONCE ONE Administration Medical Decision Making Medical Decision Making MDM Narrative: Overall she is well-appearing. Answers questions appropriately. She tells me that she had a similar event at the left wrist got infected about a year ago when she had her left carpal tunnel procedure. At that time, the symptoms were left in for almost a full 14 days and the skin was red and pink as it is now on this wrist. On the right wrist the skin is red, warm to the touch. The sutures are taut, they appear to be tight, my concern is the skin is in the rejecting them in causing a superficial skin infection. We will treat the patient with Keflex. We will have her follow up tomorrow with her provider that performed the procedure. I did remove the sutures at bedside, to which she tolerated well. We discussed extensively return precautions including fevers, chills, worsening redness or pain. She expressed understanding. Differential Diagnosis Differential Diagnoses: The differential diagnosis associated with the presentation includes Cellulitis, suture site infection, postoperative infection Admission/Observation Consideration of admission/observation: Escalation of care including admission/observation considered (Not indicated) Independent Historian Clinical information obtained from an independent historian. History obtained from or confirmed by: Spouse ( at bedside) External Record Review External record reviewed: Office record (Hand surgery) Tests considered The following testing was considered but not selected: Lab work, x-ray imaging--deferred, initial presentation with symptoms beginning yesterday, hemodynamically stable, afebrile. Appears to be a localized minor skin infection. Chronic Conditions Patient?s care impacted by: Other (Carpal tunnel syndrome) Social Determinants Patient?s care significantly limited by Social Determinants of Health including: Problems related to primary support group Discharge Plan Discharge Clinical Impression: Cellulitis of right wrist, Cellulitis Patient Disposition: Home, Self-Care Instructions: Cellulitis (ED) Additional Instructions: As we discussed, it is important that he follow up outpatient with the provider that performed her carpal tunnel procedure within the next 1-2 days. Please monitor the signs for any redness or warmth, and if you develop any fevers or chills it is very important that you return back to the ED. With any worsening complaints at any time, please seek re-evaluation in the ED. Prescriptions: New cephalexin 500 mg capsule 1,000 mg PO BID 7 Days Qty: 28 0RF No Action triamcinolone acetonide 0.1 % ointment 1 appl topical DAILY Qty: 30 0RF hydrocodone-acetaminophen 5-325 mg tablet 1 tab PO Q4-6H PRN (Reason: pain) Qty: 5 0RF Rx Instructions: Partial Fill upon patient request. Referrals: Daniella Montenegro PA-C [Primary Care Provider, Internal Medicine] Print Language: Vietnamese
[2025-05-12 00:36] VITALS: PULSE 105; RESP 18; TEMP 36.9; O2SAT 99
[2025-05-12 00:46] VITALS: BP 00/00; PULSE 105; RESP 18; TEMP 36.9; O2SAT 99
== END 2025-05-12 00:48 | disposition home or self-care (01) ==
PROVIDERS: Emergency Provider Emergency Medicine
DX: L03.113 Cellulitis of right upper limb (principal)
CPT/HCPCS: 99283; 99284

== ENCOUNTER 2025-05-12 14:14 | Outpatient (AMB) | payer BC, SELFPAY ==
--- NOTE | 2025-05-12 14:31 | MHC.OFFVIS ---
Vital Signs 05/12/25 14:33 Height 5 ft 5 in Weight 283 lb BMI 47.1 Intake Visit Reasons: PO-Rt CTR 05/04/25-wound check Intake Note: Em is a 20 year old right hand dominant female who presents today for a Wound Check status post Right Carpal Tunnel Release, DOS: 05/04/[address] Alston. Patient reports she was seen at [facility] this morning due to concerns for infection. She was started on Cephalexin and had her sutures removed as she was discharging pus from her incisions. Allergies No Known Allergies Allergy (Verified 05/12/25 14:47) HPI HPI PO-Rt CTR 05/04/25-wound check: Details: Em is a 20 year old right hand dominant female who presents today for a Wound Check status post Right Carpal Tunnel Release, DOS: 05/04/[address] Alston. Patient reports she was seen at [facility] this morning due to concerns for infection. She was started on Cephalexin and had her sutures removed as she was discharging pus from her incisions. Patient states that the redness, swelling, and pain have all improved significantly since being seen in the ED last night, but she was concerned about wound dehiscence given the fact that all of her sutures were removed last night only 7 days postop. Denies any numbness or tingling. No other acute complaints or concerns at this time [facility] Medical History (Updated 05/12/25 @ 00:26 by EMILY Borges) Flu Surgical History (Updated 03/04/25 @ 13:25 by KARIE Ramires) History of carpal tunnel surgery of left wrist (~02/12/25) No pertinent past surgical history Family History Mother No problems noted. Father No problems noted. 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 Neuro: Normal sensation of the tips of all digits of the left hand at this time Vascular: Cap refill brisk Pain: Mild tenderness to palpation about the incision on volar aspect of the left wrist over the carpal tunnel No discomfort with range of motion of the left hand ROM: Patient is able to make a closed fist and extend all digits of the left hand fully Skin: Well-approximated incision site noted on the volar left wrist No lacerations or abrasions. General: There is some [id number] erythema that has surrounding the incision site There is some slight purulent discharge from some of the suture sites, proximally a total of half a cc able to be expressed No evidence of deeper abscess formation, drainage, or evidence of worsening infection Psych: Appears grossly normal Affect normal Attitude cooperative Assessment & Plan Assessment & Plan (1) Carpal tunnel syndrome on both sides: Code(s): G56.03 - Carpal tunnel syndrome, bilateral upper limbs Category: Medical Plan 1. Status post right carpal tunnel release DOS 05/04/2025 Patient appears to be recovering fairly well postoperatively Patient is educated about the typical recovery course No evidence of deeper abscess formation Patient should wash the incision site with soap and water in the sink of the shower Continue with antibiotics No submerging the right hand 2 lb weight limit in right hand reinforced Patient will keep previously scheduled postoperative appointment as a wound check, may follow-up sooner with any acute concerns Coding Level of Care Code Global (15673) Diagnoses Carpal tunnel syndrome on both sides G56.03
[2025-05-12 14:33] VITALS: BMI 47.1
== END 2025-05-12 15:00 | disposition home or self-care (01) ==
LOC: HO.HOS 14:15
DX: G56.03 Carpal tunnel syndrome, bilateral upper limbs (principal)
CPT/HCPCS: 99024

== ENCOUNTER 2025-05-19 12:55 | Outpatient (AMB) | payer BC, SELFPAY ==
--- NOTE | 2025-05-19 12:58 | A.OFFVIS_ITS ---
Intake Visit Reasons: PO-Rt CTR 05/04/25 Intake Note: Em is a 20 year old right hand dominant female who presents today for a wound check status post right carpal tunnel release, DOS: 05/04/[address] Alston. Patient reports that she is doing well, states incision area looks good. She has completed her prescribed antibiotics yesterday. Allergies No Known Allergies Allergy (Verified 05/19/25 13:02) HPI HPI PO-Rt CTR 05/04/25: Details: Em is a 20 year old right hand dominant woman who returns S/P right carpal tunnel release, DOS: 05/04/25. She says she is doing well and her sensation is now normal. She says she has completed her Abx and her incision is looking better, with good resolution of her suture abscess. [facility] Medical History (Updated 05/13/25 @ 00:01 by Shreya Monzon) Flu Surgical History History of carpal tunnel surgery of left wrist (~02/12/25) No pertinent past surgical history Family History Mother No problems noted. Father No problems noted. 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 Sutures removed and Steri-Strips applied She can make a fist and extend all her digits Sensation is normal to all digits Cap refill is brisk Nerve Conduction Study: IMPRESSION: Mild to moderate bilateral median neuropathy across carpal tunnel. Wu Bejarano MD 11/04/2024 Psych Appearance: grossly normal Affect: normal affect Attitude: cooperative Assessment & Plan Assessment & Plan (1) Carpal tunnel syndrome on both sides: Code(s): G56.03 - Carpal tunnel syndrome, bilateral upper limbs Category: Medical Plan Assessment & Plan: 1. Right carpal tunnel syndrome, S/P release DOS 05/04/25 Now with normal sensation & good resolution of her symptoms The patient appears to be doing well post-operatively I educated her about the post-operative course At 7 days it sounds like she had a superficial suture abscess which was treated in the ED by removal of sutures and and placing her on antibiotics. This is now resolved. I explained the signs and symptoms of infection, if the patient develops any new or worsening erythema, drainage, pain, or warmth they should contact the clinic or attend the ED. I discussed activity modifications, she is to lift nothing heavier than a cellphone for the next 2 weeks. They should also avoid any heavy impact activities, falls, or sports activities for the next 2 weeks She will perform gentle ROM exercises at home She should avoid any underwater activities for the next 5 days She should gently massage about the incision site to reduce the risk of hypersensitivity She is very happy with the improvement in her symptoms in both of her hands. She can follow up prn 2. Left carpal tunnel syndrome, S/P release DOS 02/09/25 Scribed for Keila Alston MD by Bran Griffin, product manager medical device, on 05/19/25 at 1:20 PM, EST. Coding Level of Care Code Global (28116) Diagnoses Carpal tunnel syndrome on both sides G56.03
== END 2025-05-19 13:31 | disposition home or self-care (01) ==
LOC: HO.HOS 12:56
PROVIDERS: Visit Provider Orthopaedic Surgery
DX: G56.03 Carpal tunnel syndrome, bilateral upper limbs (principal)
CPT/HCPCS: 99024